=== PATIENT | female | born 1930 | race Caucasian/White ===

== ENCOUNTER 2016-11-24 15:39 | Emergency (ER) | payer MEDICARE ==
[~2016-11-24] VITALS: Ht 170.2 cm; Wt 64.5 kg
[~2016-11-24 15:39] MED LIST: LASI20TA PO; METO25 PO; NAME5TAB2 PO; OXYC10 PO; POTASSIUM PO; REME15TA PO; ZOLP5TAB3 PO
[2016-11-24 17:14] LABS: BACTERIA, URINE RARE /hpf; BLOOD, URINE NEG (NEG); COMMENT (UR) CULT NOT INDICATED; CULTURE IF INDICATED CULT NOT INDICATED; GLUCOSE,URINE NEG (NEG); HYALINE CAST, URINE 7 /lpf (RARE); KETONE, URINE NEG (NEG); NITRITE,URINE NEG (NEG); SQUAMOUS EPITHELIAL CELL URINE <1 /hpf (0-5); URINE COLOR YELLOW (YELLW/STRAW)
--- NOTE | 2016-11-24 17:14 | RADRPT ---
EXAM DATE/TIME: 11/24/2016 16:57 [facility] COMPARISON: CT BRAIN W/O CONTRAST, May 09, 2016, 10:15. INDICATIONS : Altered mental status. RADIATION DOSE: 36.75 CTDIvol (mGy) MEDICAL HISTORY : None SURGICAL HISTORY : None. ENCOUNTER: Initial ACUITY: 1 day PAIN SCALE: 0/10 LOCATION: Bilateral cranial TECHNIQUE: Multiple contiguous axial images were obtained of the head. Using automated exposure control and adj ustment of the mA and/or kV according to patient size, radiation dose was kept as low as reasonably a chievable to obtain optimal diagnostic quality images. FINDINGS: CEREBRUM: The ventricles are normal for age. No evidence of midline shift, mass lesion, hemorrhage or acute in farction. No extra-axial fluid collections are seen. POSTERIOR FOSSA: The cerebellum and brainstem are intact. The 4th ventricle is midline. The cerebellopontine angle i s unremarkable. EXTRACRANIAL: The visualized portion of the orbits is intact. SKULL: The calvaria is intact. No evidence of skull fracture. CONCLUSION: Unremarkable exam. Basil Crooks MD on November 24, 2016 at 17:08 Board Certified Radiologist. This report was verified electronically.
--- NOTE | 2016-11-24 17:22 | RADRPT ---
EXAM DATE/TIME: 11/24/2016 16:40 [facility] COMPARISON: No previous studies available for comparison. INDICATIONS : Palpitations. MEDICAL HISTORY : None. SURGICAL HISTORY : None. ENCOUNTER: Initial ACUITY: 1 day PAIN SCORE: 0/10 LOCATION: Bilateral chest FINDINGS: A single view of the chest demonstrates the lungs to be symmetrically aerated without evidence of mas s, infiltrate or effusion. The cardiomediastinal contours are unremarkable. Osseous structures are intact. There is asymmetry of the breast tissues. Atherosclerotic changes are present in the aorta. T here are multiple overlying electrocardiogram leads. CONCLUSION: No acute disease. Basil Crooks MD on November 24, 2016 at 17:19 Board Certified Radiologist. This report was verified electronically.
[2016-11-24 17:32] LABS: AUTOMATED NEUTROPHIL # 2.2 TH/MM3 (1.8-7.7); BASOPHIL % 0.7 % (0.0-2.0); EOSINOPHIL # 0.1 TH/MM3 (0-0.4); EOSINOPHIL % 2.1 % (0.0-4.0); HEMO FLAGS DIFF FINAL; LYMPH % 25.6 % (9.0-44.0); LYMPHOCYTE # 0.9 TH/MM3 (1.0-4.8); MEAN CELL VOLUME 101.8 FL (80.0-100.0); MEAN CORPUSCULAR HEMOGLOBIN 33.7 PG (27.0-34.0); MEAN CORPUSCULAR HGB CONC 33.1 % (32.0-36.0); MONO % 13.4 % (0.0-8.0); NEUT % 58.2 % (16.0-70.0); PLATELET COUNT 124 TH/MM3 (150-450); RED BLOOD COUNT 3.73 MIL/MM3 (4.00-5.30); WHITE BLOOD COUNT 3.7 TH/MM3 (4.0-11.0)
--- NOTE | 2016-11-24 17:41 | PD ---
HPI Chief Complaint: altered mental status Time Seen by Provider: 16:23 Travel History International Travel<30 days: No Contact w/Intl Traveler<30days: No History of Present Illness HPI 86-year-old female presents for evaluation of increase in altered mental status. Patient denies any complaints at this time. History is significantly limited from patient as there is report that she has dementia but records are limited. [facility] Past Medical History Medical History: Unable to Obtain Menopausal: Yes Past Surgical History Surgical History: Unable to Obtain Social History Alcohol Use: No Tobacco Use: No Substance Use: No Allergies-Medications (Allergen,Severity, Reaction): Coded Allergies: UNOBTAINABLE (Unverified , 05/09/16) power out at the facility, sent no paperwork except med list Reported Meds & Prescriptions Reported Meds & Active Scripts Active No Active Prescriptions or Reported Medications Review of Systems ROS Limitations: Poor Historian Except as stated in HPI: all other systems reviewed are Neg Physical Exam Exam Limitations: Poor Historian Narrative GENERAL: Well-nourished, well-developed patient. SKIN: Warm and dry. HEAD: Normocephalic and atraumatic. EYES: No injection or drainage. Pupils equal ENT: No nasal drainage noted. NECK: Supple, trachea midline. CARDIOVASCULAR: Regular rate and rhythm RESPIRATORY: No increased effort. No accessory muscle use. GASTROINTESTINAL: Abdomen soft, non-tender, nondistended. NEUROLOGICAL: Awake and alert to name, location, season, cannot give me month, day or year. Motor and sensory grossly within normal limits. Normal speech. Equal grasp bilaterally Data Data Last Documented VS Vital Signs Date Time Temp Pulse Resp B/P Pulse Ox O2 Delivery O2 Flow Rate FiO2 11/24/16 19:17 91 15 203/95 96 Room Air 11/24/16 18:01 98.0 Orders Magnesium (Mg) (11/24/16 16:23) Phosphorus (Po4) (11/24/16 16:23) Complete Blood Count With Diff (11/24/16 16:23) Comprehensive Metabolic Panel (11/24/16 16:23) Ckmb (Isoenzyme) Profile (11/24/16 16:23) Troponin I (11/24/16 16:23) Urinalysis - C+S If Indicated (11/24/16 16:23) Act Partial Throm Time (Ptt) (11/24/16 16:23) Prothrombin Time / Inr (Pt) (11/24/16 16:23) Ct Brain W/O Iv Contrast(Rout) (11/24/16 ) B-Type Natriuretic Peptide (11/24/16 16:23) Chest, Single Ap (11/24/16 ) Electrocardiogram (11/24/16 ) Iv Access Insert/Monitor (11/24/16 16:23) Ecg Monitoring (11/24/16 16:23) Oximetry (11/24/16 16:23) CKMB (11/24/16 18:20) CKMB% (11/24/16 18:20) Labs Laboratory Tests Test 11/24/16 11/24/16 11/24/16 16:40 17:00 18:20 Urine Color YELLOW Urine Turbidity CLEAR Urine pH 6.0 Urine Specific [place] 1.015 Urine Protein NEG mg/dL Urine Glucose (UA) NEG mg/dL Urine Ketones NEG mg/dL Urine Occult Blood NEG Urine Nitrite NEG Urine Bilirubin NEG Urine Urobilinogen LESS THAN 2.0 MG/DL Urine Leukocyte Esterase TRACE Urine RBC 2 /hpf Urine WBC LESS THAN 1 /hpf Urine Squamous Epithelial <1 /hpf Cells Urine Bacteria RARE /hpf Urine Hyaline Casts 7 /lpf Microscopic Urinalysis Comment CULT NOT INDICATED White Blood Count 3.7 TH/MM3 Red Blood Count 3.73 MIL/MM3 Hemoglobin 12.6 GM/DL Hematocrit 38.0 % Mean Corpuscular Volume 101.8 FL Mean Corpuscular Hemoglobin 33.7 PG Mean Corpuscular Hemoglobin 33.1 % Concent Red Cell Distribution Width 14.0 % Platelet Count 124 TH/MM3 Mean Platelet Volume 8.8 FL Neutrophils (%) (Auto) 58.2 % Lymphocytes (%) (Auto) 25.6 % Monocytes (%) (Auto) 13.4 % Eosinophils (%) (Auto) 2.1 % Basophils (%) (Auto) 0.7 % Neutrophils # (Auto) 2.2 TH/MM3 Lymphocytes # (Auto) 0.9 TH/MM3 Monocytes # (Auto) 0.5 TH/MM3 Eosinophils # (Auto) 0.1 TH/MM3 Basophils # (Auto) 0.0 TH/MM3 CBC Comment DIFF FINAL Differential Comment B-Type Natriuretic Peptide 71 PG/ML Prothrombin Time 11.5 SEC Prothromb Time International 1.0 RATIO Ratio Activated Partial 26.8 SEC Thromboplast Time Sodium Level 141 MEQ/L Potassium Level 3.4 MEQ/L Chloride Level 107 MEQ/L Carbon Dioxide Level 23.2 MEQ/L Anion Gap 11 MEQ/L Blood Urea Nitrogen 16 MG/DL Creatinine 0.67 MG/DL Estimat Glomerular Filtration 84 ML/MIN Rate Random Glucose 87 MG/DL Calcium Level 7.3 MG/DL Protein Corrected Calcium 8.1 MG/DL Phosphorus Level 2.4 MG/DL Magnesium Level 1.5 MG/DL Total Bilirubin 0.4 MG/DL Aspartate Amino Transf 31 U/L (AST/SGOT) Alanine Aminotransferase 18 U/L (ALT/SGPT) Alkaline Phosphatase 44 U/L Total Creatine Kinase 112 U/L Creatine Kinase MB 1.5 NG/ML Troponin I LESS THAN 0.02 NG/ML Total Protein 5.7 GM/DL Albumin 3.2 GM/DL MDM Medical Decision Making Medical Screen Exam Complete: Yes Emergency Medical Condition: Yes Medical Record Reviewed: Yes (past history confirmed) Interpretation(s) EKG shows NSR, no ST elevation or depression, and no arrhythmias. No significant T-wave inversions. PVCs CBC & BMP Diagram 11/24/16 17:00 CBC & BMP Diagram 11/24/16 17:00 11/24/16 18:20 Last [address] 11/24/16 0000 Signed Impressions: Service Date/Time: Thursday, November 24, 2016 16:57 - CONCLUSION: Unremarkable exam. Basil Crooks MD Chest X-Ray 11/24/16 0000 Signed Impressions: Service Date/Time: Thursday, November 24, 2016 16:40 - CONCLUSION: No acute disease. Basil Crooks MD no acute Differential Diagnosis Electrolyte abnormality, intracranial, UTI... Narrative Course Will check blood work, EKG, imaging and reevaluate. Patient had brief episode of bigeminy that was asymptomatic on arrival. ed workup no acute except ck and troponin, if normal will dc, Patient denies any new complaints and patient appears at dementia baseline, stable for outpatient workup, attempted to reach daughter without answer to help coordinate outpatient care Physician Communication Physician Communication dr mcgowan to follow labs and if normal dc Diagnosis Primary Impression: Altered mental status Qualified Code: R41.82 - Altered mental status, unspecified altered mental status type Patient Instructions: General Instructions Additional Instructions: follow with primary tommorrow, return as needed Med/Other Pt SpecificInfo: No Change to Meds Scripts No Active Prescriptions or Reported Meds Disposition: 01 DISCHARGE HOME Condition: Stable Roxie Aguila MD Nov 24, 2016 17:41
[2016-11-24 17:57] VITALS: BP 180/99; PULSE 78; RESP 14; TEMP 97.9; O2SAT 97
[2016-11-24 18:01] VITALS: BP 180/99; PULSE 78; RESP 14; TEMP 98; O2SAT 98
[2016-11-24 19:03] LABS: ALT (GPT) 18 U/L (10-53); ANION GAP 11 MEQ/L (5-15); AST (GOT) 31 U/L (15-37); BICARBONATE 23.2 MEQ/L (21.0-32.0); BLOOD UREA NITROGEN 16 MG/DL (7-18); CHLORIDE 107 MEQ/L (98-107); GLOMERULAR FILTRATION RATE 84 ML/MIN (>89); MAGNESIUM 1.5 MG/DL (1.5-2.5); POTASSIUM 3.4 MEQ/L (3.5-5.1); SODIUM (NA) 141 MEQ/L (136-145)
[2016-11-24 19:04] LABS: APTT (PATIENT) 26.8 SEC (24.3-30.1); PROTHROMBIN TIME - PATIENT 11.5 SEC (9.8-11.6)
[2016-11-24 19:17] VITALS: BP 203/95; PULSE 91; RESP 15; O2SAT 96
[2016-11-24 19:23] LABS: ALKALINE PHOSPHATASE 44 U/L (45-117); CALCIUM-PROTEIN CORRECTED 8.1 MG/DL (8.5-10.1); CREATINE KINASE 112 U/L (26-192); TOTAL BILIRUBIN ADULT 0.4 MG/DL (0.2-1.0)
[2016-11-24 20:50] LABS: CKMB 1.5 NG/ML (0.5-3.6)
--- NOTE | 2016-11-25 10:38 | EKG ---
Date Performed: 11/24/2016 Time Performed: 16:26:26 PTAGE: 86 years EKG: Sinus rhythm WITH OCCASIONAL VENTRICULAR PREMATURE COMPLEXES WITH OCCASIONAL SUPRAVENTRICULAR PREMATURE COMPLEXES MARKED LEFT AXIS DEVIATION RIGHT BUNDLE BRANCH BLOCK MODERATE VOLTAGE CRITERIA FOR LVH, CONSIDER NOR MAL VARIANT ABNORMAL ECG INTERPRETATION BASED ON A DEFAULT AGE OF 40 YEARS NO PREVIOUS TRACING DOCTOR: Fifi Cadena Interpretating Date/Time 11/25/2016 10:36:45
== END 2016-11-25 00:35 | disposition home or self-care (01) ==
LOC: NEPC 15:39
DX: F03.90 Unspecified dementia, unspecified severity, without behavioral disturbance, psychotic disturbance, mood disturbance, and anxiety (principal); R94.31 Abnormal electrocardiogram [ECG] [EKG]; R00.2 Palpitations; I45.10 Unspecified right bundle-branch block
CPT/HCPCS: 70450; 71010; 80053; 81001; 82550; 82552; 83735; 83880; 84100; 84484; 85025; 85610; 85730; 93005

== ENCOUNTER 2018-07-30 20:38 | Observation (INO) ==
--- NOTE | 2018-07-30 22:03 | XR ---
EXAM DATE: 07/30/2018 9:58 PM EST AGE/SEX: 87 years / Female INDICATIONS: Patient was found on the floor presuming a fall, left flank pain. CLINICAL DATA: This is the patient's initial encounter. Patient reports that signs and symptoms have been present for 1 day and indicates a pain score of 8/10. MEDICAL/SURGICAL HISTORY: None. . Left hip arthroplasty. COMPARISON: No prior exams available for comparison. FINDINGS: Postoperative left hip replacement. Soft tissue swelling lateral thigh. Moderate osteoarthritis of ri ght hip. No acute fracture identified. CONCLUSION: No acute fracture. Left hip replacement. Soft tissue swelling upper lateral left thigh. Electronically signed by: Troy Akhtar MD Board Certified Radiologist 07/30/2018 10:02 PM EST
--- NOTE | 2018-07-30 22:13 | CT ---
EXAM DATE: 07/30/2018 10:09 PM EST AGE/SEX: 87 years / Female INDICATIONS: Trauma; fall. CLINICAL DATA: This is the patient's initial encounter. Patient reports that signs and symptoms have been present for 1 day and indicates a pain score of Nonresponsive. MEDICAL/SURGICAL HISTORY: Dementia. Hypertension. Mastectomy, bilateral. RADIATION DOSE: 32.74 CTDI (mGy) COMPARISON: [facility] [place], CT BRAIN W/O CONTRAST, 11/24/2016. . TECHNIQUE: CT of the head without contrast. Using automated exposure control and adjustment of the mA and/or kV according to patient size, radiation dose was kept as low as reasonably achievable to ob tain optimal diagnostic quality images. DICOM format image data is available electronically for revi ew and comparison. FINDINGS: Cerebrum: The ventricles are normal for age. No evidence of midline shift, mass lesion, hemorrhage or acute infarction. No extraaxial fluid collections are seen. Posterior Fossa: The cerebellum and brainstem are intact. The 4th ventricle is midline. The cerebe llopontine angle is unremarkable. Extracranial: The visualized portion of the orbits is intact. Skull: The calvaria is intact. No evidence of skull fracture. CONCLUSION: 1. No acute intracranial abnormalities. Cortical volume loss noted. . Electronically signed by: Troy Akhtar MD Board Certified Radiologist 07/30/2018 10:12 PM EST
--- NOTE | 2018-07-30 22:25 | CT ---
EXAM DATE: 07/30/2018 10:12 PM EST AGE/SEX: 87 years / Female INDICATIONS: Trauma; fall. CLINICAL DATA: This is the patient's initial encounter. Patient reports that signs and symptoms have been present for 1 day and indicates a pain score of Nonresponsive. MEDICAL/SURGICAL HISTORY: Dementia. Hypertension. Mastectomy, bilateral. RADIATION DOSE: 16.56 CTDI (mGy) COMPARISON: No prior exams available for comparison. TECHNIQUE: Contiguous axial images were obtained using helical multirow detector technique. The vol umetric data was post-processed with multiplanar reconstruction in oblique axial, sagittal, and coron al planes. Using automated exposure control and adjustment of the mA and/or kV according to patient s ize, radiation dose was kept as low as reasonably achievable to obtain optimal diagnostic quality emilia ges. DICOM format image data is available electronically for review and comparison. FINDINGS: There is no acute fracture. There is mild degenerative anterolisthesis of C3 on C4 on C5 and C7 on T1 . There is moderate degenerative disc disease and multilevel foraminal encroachment. No prevertebral so ft tissue swelling. No significant bony canal stenosis. CONCLUSION: 1. No acute fracture. Mild degenerative anterolisthesis at C3-4-5 and C7-T1-T2. Electronically signed by: Troy Akhtar MD Board Certified Radiologist 07/30/2018 10:24 PM EST
[2018-07-30 22:47] LABS: Bilirubin,Urine Negative (Negative); Clarity,Urine Clear (Clear); Color,Urine Straw (Yellw/Straw); Glucose,Urine (UA) Negative (Negative); Leukocyte Esterase,Urine Small (Negative); Nitrite,Urine Negative (Negative); Specific Gravity,Urine 1.008 (1.002-1.035); Squamous Epithelial Cell,Urine 1 /hpf (0-5)
[2018-07-30 22:57] LABS: Baso % (Auto) 0.6 % (0.0-2.0); Eos # (Auto) 0.1 th/mm3 (0.0-0.4); Eos % (Auto) 2.3 % (0.0-4.0); Hematocrit 36.1 % (35.0-46.0); Hemoglobin 12.2 gm/dL (11.6-15.3); Lymph # (Auto) 1.1 th/mm3 (1.0-4.8); Lymph % (Auto) 20.8 % (9.0-44.0); Mean Corpuscular HGB Conc 33.9 % (32.0-36.0); Mean Corpuscular Volume 100.2 fL (80.0-100.0); Mean Platelet Volume 7.7 fL (7.0-11.0); Mono # (Auto) 0.7 th/mm3 (0.0-0.9); Mono % (Auto) 12.5 % (0.0-8.0); Neut # (Auto) 3.4 th/mm3 (1.8-7.7); Neut % (Auto) 63.8 % (16.0-70.0); Platelet Count 112 th/mm3 (150-450); Red Cell Distribution Width 14.1 % (11.6-17.2); White Blood Count 5.3 th/mm3 (4.0-11.0)
[2018-07-30 23:02] LABS: Alanine Aminotransferase 14 U/L (10-53); Albumin 3.8 g/dL (3.4-5.0); Anion Gap 9 meq/L (5-15); Aspartate Aminotransferase 19 U/L (15-37); Blood Urea Nitrogen 17 mg/dL (7-18); Calcium 8.9 mg/dL (8.5-10.1); Carbon Dioxide 34.4 meq/L (21.0-32.0); Chloride 101 meq/L (98-107); Glomerular Filtration Rate 54 mL/min (>89); Glucose,Random 100 mg/dL (74-106); Potassium 3.3 meq/L (3.5-5.1); Sodium 144 meq/L (136-145)
[2018-07-30 23:04] LABS: Activated Partial Thrombo Time 26.3 sec (23.4-31.7); Alkaline Phosphatase 59 U/L (45-117); INR 1.1 Ratio; Prothrombin Time 11.3 sec (9.8-11.6)
[2018-07-31] MEDS ORDERED: LORazepam 1 MG Tablet PO ONE (02:38)
[2018-07-31] MEDS ORDERED: Bisacodyl 10 MG Supp RECTAL PRN (03:05)
[2018-07-31] MEDS ORDERED: Acetaminophen 325 MG Tablet PO PRN (03:05)
[2018-07-31] MEDS: Sod Chloride 0.9% Inj 1,000 ML IV.CONT SCH ×2 (03:18→13:50)
--- NOTE | 2018-07-31 03:57 | P.HPIM ---
History of Present Illness Primary Care Physician: No Primary Care Physician History of Present Illness: This is an 87-year-old female with a PMH of HTN and Dementia who was brought to the ER by EMS for c/o left hip pain after a fall. Found on ground by daughter, unclear if pt had LOC. Pt poor historian due to underlying dementia. On arrival, BP 136/74, HR 80, O2 sat 97% on RA, Afebrile. CBC unremarkable. Chemistry essentially unremarkable. CT C-Spine w/ no acute fracture. CT Head negative. Hip X-ray negative for fracture. Pt was to be d/c'd from the ER, however had syncopal episode upon standing. Denies complaints at this time. Diagnosis (1) Fall: (2) Syncope: (3) Dementia: Review of Systems PAST FAMILY HISTORY: Reviewed. No h/o DM or CAD Review of Systems: all other systems reviewed are negative [facility] Medical History Medical History Dementia (Acute) Hypertension (Acute) Surgical History Surgical History H/O mastectomy (Acute) Stented coronary artery (Acute) Social History Social History Substance History: No History of Abuse Second Hand Smoke Exposure: No Smoking Status: Former smoker How Often Do You Have a Drink Containing Alcohol: Never Recent Travel in [facility] within the Last 8 Weeks: No Recent Out of Country Travel within the Last 8 Weeks: No Immunization History Tetanus Immunization: Unsure Medications and Allergies Allergies Allergy/AdvReac Type Severity Reaction Status Date / Time Penicillins Allergy Hives Verified 07/30/18 20:50 Home Medications Medication Instructions Recorded Confirmed Type Unable to Obtain Home Meds 07/30/18 07/30/18 History Active Medications: Active Medications Acetaminophen (Tylenol) 650 mg PO Q4H PRN PRN Reason: Temp > 100.4 Al Hydroxide/Mg Hydroxide (Milk Of Magnesia Liq) 30 ml PO Q12H PRN PRN Reason: Mild Constipation Bisacodyl (Dulcolax Supp) 10 mg RECTAL DAILY PRN PRN Reason: SEVERE CONSITIPATION Sodium Chloride (Ns Inj) 1,000 mls @ 100 mls/hr IV.CONT .Q10H [facility] Last Admin: 07/31/18 03:18 Dose: 100 mls/hr Lactulose (Lactulose Liq) 30 ml PO DAILY PRN PRN Reason: SEVERE CONSITIPATION Ondansetron HCl (Zofran Inj) 4 mg IV.PUSH Q6H PRN PRN Reason: NAUSEA OR VOMITING Senna/Docusate Sodium (Julita-Colace) 1 tab PO BID AYANNA Sennosides (Senokot) 17.2 mg PO Q12H PRN PRN Reason: Moderate Constipation Sodium Chloride (Ns Flush) 2 ml IV.FLUSH BID AYANNA Sodium Chloride (Ns Flush) 2 ml IV.FLUSH PRN PRN PRN Reason: FLUSH AFTER USING IV ACCESS Physical Exam Vital signs: Last Vital Signs Temp 98.3 F 07/30/18 20:50 Pulse 58 L 07/31/18 01:00 Resp 16 07/31/18 01:00 BP 163/57 H 07/31/18 01:00 Pulse Ox 96 07/31/18 01:00 Intake & Output 07/28/18 07/29/18 07/30/18 07/31/18 06:59 06:59 06:59 06:59 Weight 58.967 kg Narrative: PE: GENERAL: Pleasant elderly white female in no acute distress. SKIN: Focused skin assessment warm and dry. HEENT: PERRLA, EOMI. No scleral icterus or conjunctival pallor. No lid lag or facial droop. CARDIOVASCULAR: Regular rate and rhythm. No obvious murmurs to auscultation. No chest tenderness to palpation. RESPIRATORY: No obvious rhonchi or wheezing. Clear to auscultation. Breath sounds equal bilaterally. GASTROINTESTINAL: Abdomen soft, non-tender, nondistended. BS normal. MUSCULOSKELETAL: Extremities without clubbing, cyanosis, or edema. No obvious deformities. Some pain w/ movement LLE NEUROLOGICAL: Awake, alert and oriented x4. No focal neurologic deficits. Moving both upper and lower extremities spontaneously. PSYCHIATRIC: Appropriate mood and affect. Insight and judgment normal. Results Labs CBC & Chem 7: 07/30/18 22:26 07/30/18 22:26 Imaging Impressions Cervical Spine CT 07/30/18 21:27 CONCLUSION: 1. No acute fracture. Mild degenerative anterolisthesis at C3-4-5 and C7-T1-T2. Head CT 07/30/18 21:27 CONCLUSION: 1. No acute intracranial abnormalities. Cortical volume loss noted. . Hip X-Ray 07/30/18 21:27 CONCLUSION: No acute fracture. Left hip replacement. Soft tissue swelling upper lateral left thigh. Caprini VTE Risk Assessment Caprini VTE Risk Assessment: No/Low Risk (score <= 1) Caprini Risk Assessment Model: Point Value = 1 Point Value = 2 Point Value = 3 Point Value = 5 Age 41-60 Minor surgery BMI > 25 kg/m2 Swollen legs Varicose veins or History of unexplained or recurrent spontaneous Oral contraceptives or hormone replacement Sepsis (< 1 month) Serious lung disease, including pneumonia (< 1 month) Abnormal pulmonary function Acute myocardial infarction Congestive heart failure (< 1 month) History of inflammatory bowel disease Medical patient at bed rest Age 61-74 Arthroscopic surgery Major open surgery (> 45 min) Laparoscopic surgery (> 45 min) Malignancy Confined to bed (> 72 hours) Immobilizing plaster cast Central venous access Age >= 75 History of VTE Family history of VTE Factor V Leiden Prothrombin [id number] Lupus anticoagulant Anticardiolipin antibodies Elevated serum homocysteine Heparin-induced thrombocytopenia Other congenital or acquired thrombophilia Stroke (< 1 month) Elective arthroplasty Hip, pelvis, or leg fracture Acute spinal cord injury (< 1 month) Prophylaxis Regimen: Total Risk Factor Score Risk Level Prophylaxis Regimen 0-1 Low Early ambulation 2 Moderate Order ONE of the following: *Sequential Compression Device (SCD) *Heparin 5000 units SQ BID 3-4 Higher Order ONE of the following medications: *Heparin 5000 units SQ TID *Enoxaparin/Lovenox 40 mg SQ daily (WT < 150 kg, CrCl > 30 mL/min) *Enoxaparin/Lovenox 30 mg SQ daily (WT < 150 kg, CrCl > 10-29 mL/min) *Enoxaparin/Lovenox 30 mg SQ BID (WT < 150 kg, CrCl > 30 mL/min) AND/OR *Sequential Compression Device (SCD) 5 or more Highest Order ONE of the following medications: *Heparin 5000 units SQ TID (Preferred with Epidurals) *Enoxaparin/Lovenox 40 mg SQ daily (WT < 150 kg, CrCl > 30 mL/min) *Enoxaparin/Lovenox 30 mg SQ daily (WT < 150 kg, CrCl > 10-29 mL/min) *Enoxaparin/Lovenox 30 mg SQ BID (WT < 150 kg, CrCl > 30 mL/min) AND *Sequential Compression Device (SCD) Assessment and Plan (1) Fall: Code(s): W19.XXXA - Unspecified fall, initial encounter Status: Acute (2) Syncope: Code(s): R55 - Syncope and collapse Status: Acute (3) Dementia: Code(s): F03.90 - Unspecified dementia without behavioral disturbance Status: Acute Plan A/P: 1. Fall: s/p unwitnessed fall w/ c/o left hip pain, CT Head/C-Spine w/ no acute findings. Hip X-ray negative for fracture. 2. Syncope: likely vasovagal, syncopal event upon standing while in ER, admit for observation, telemetry, check serial cardiac enzymes, check Echo to eval for valvular abnormality/cardiomyopathy. PT for eval/tx. 3. Dementia: At baseline, resume home meds once available. 4. DVT Prophylaxis: SCD/Teds 5. Social work for d/c planning as needed 6. Case discussed w/ ER physician at length, labs/records/imaging reviewed by me.
--- NOTE | 2018-07-31 04:08 | ED ---
HPI General Chief Complaint: Fall Stated Complaint: fall/hip pain Time Seen by Provider: 07/30/18 21:16 History of Present Illness HPI Narrative: Patient is an 87-year-old female presents the emergency department with chief complaint of fall. Per daughter it was unwitnessed however she found her on the ground. Unclear if this was syncope or trip and fall. Patient is complaining of leg pain on the left. She is somewhat demented and does not provide any history. Daughter states she walks with a walker at home regularly. She does not take any blood thinners. Unclear if there was a head strike or not because the fall was unwitnessed. Related Data Home Medications Medication Instructions Recorded Confirmed Unable to Obtain Home Meds 07/30/18 07/30/18 Allergies Allergy/AdvReac Type Severity Reaction Status Date / Time Penicillins Allergy Hives Verified 07/30/18 20:50 Review of Systems ROS: all other systems reviewed are negative FOR[facility]LY [facility] Medical History Medical History Dementia (Acute) Hypertension (Acute) Surgical History Surgical History H/O mastectomy (Acute) Stented coronary artery (Acute) Social History Social History Substance History: No History of Abuse Second Hand Smoke Exposure: No Smoking Status: Former smoker How Often Do You Have a Drink Containing Alcohol: Never Recent Travel in [facility] within the Last 8 Weeks: No Recent Out of Country Travel within the Last 8 Weeks: No Immunization History Tetanus Immunization: Unsure Exam Narrative Exam Narrative: GENERAL: 87-year-old female in no distress SKIN: Focused skin assessment warm/dry. HEAD: Atraumatic. Normocephalic. EYES: Pupils equal and round. No scleral icterus. No injection or drainage. ENT: No nasal bleeding or discharge. Mucous membranes pink and moist. NECK: Trachea midline. No JVD. CARDIOVASCULAR: Regular rate and rhythm. No murmur appreciated. RESPIRATORY: No accessory muscle use. Clear to auscultation. Breath sounds equal bilaterally. GASTROINTESTINAL: Abdomen soft, non-tender, nondistended. Hepatic and splenic margins not palpable. MUSCULOSKELETAL: Large hematoma to the left lateral thigh near the greater trochanter. No pain in the actual hip joint when palpating the inguinal region. NEUROLOGICAL: Awake and alert. No obvious cranial nerve deficits. Motor grossly within normal limits. Normal speech. Course Initial Documented Vital Signs Temperature 98.3 F 07/30/18 20:50 Pulse Rate 80 07/30/18 20:50 Respiratory Rate 20 12/29/18 20:50 Blood Pressure 136/74 07/30/18 20:50 Pulse Oximetry 97 07/30/18 20:50 Last Documented Vital Signs Temperature 98.3 F 07/30/18 20:50 Pulse Rate 58 L 07/31/18 01:00 Respiratory Rate 16 07/31/18 01:00 Blood Pressure 163/57 H 07/31/18 01:00 Pulse Oximetry 96 07/31/18 01:00 Medical Decision Making MDM Narrative Medical decision making narrative: discharge she had a syncopal episode while in the emergency department.Patient was seen and evaluated in the emergency department. Her urine was unremarkable. Her labs were unremarkable. Her CT scans were unremarkable. Her radiograph was negative and she did not have a hip fracture. She was subsequently discharged but upon she was then reevaluated and could not stand for orthostatic vital signs. She was subsequently admitted to the hospitalist service for syncope and reevaluation Medical Screen Exam Complete: Yes Emergency Medical Condition: Yes Lab Data Result diagrams: 07/30/18 22:26 07/30/18 22:26 Lab Results 07/30/18 07/30/18 07/30/18 Range/Units 22:24 22:26 22:26 WBC 5.3 (4.0-11.0) th/mm3 RBC 3.60 L (4.00-5.30) mil/mm3 Hgb 12.2 (11.6-15.3) gm/dL Hct 36.1 (35.0-46.0) % MCV 100.2 H (80.0-100.0) fL MCH 34.0 (27.0-34.0) pg MCHC 33.9 (32.0-36.0) % RDW 14.1 (11.6-17.2) % Plt Count 112 L (150-450) th/mm3 MPV 7.7 (7.0-11.0) fL Neut % (Auto) 63.8 (16.0-70.0) % Lymph % (Auto) 20.8 (9.0-44.0) % [place] % (Auto) 12.5 H (0.0-8.0) % Eos % (Auto) 2.3 (0.0-4.0) % Baso % (Auto) 0.6 (0.0-2.0) % Neut # (Auto) 3.4 (1.8-7.7) th/mm3 Lymph # (Auto) 1.1 (1.0-4.8) th/mm3 [place] # (Auto) 0.7 (0.0-0.9) th/mm3 Eos # (Auto) 0.1 (0.0-0.4) th/mm3 Baso # (Auto) 0.0 (0.0-0.2) th/mm3 WBC Differential . Differential Comment Auto diff final PT 11.3 (9.8-11.6) sec INR 1.1 Ratio APTT 26.3 (23.4-31.7) sec Sodium (136-145) meq/L Potassium (3.5-5.1) meq/L Chloride (98-107) meq/L Carbon Dioxide (21.0-32.0) meq/L Anion Gap (5-15) meq/L BUN (7-18) mg/dL Creatinine (0.50-1.00) mg/dL Estimated GFR (>89) mL/min Random Glucose (74-106) mg/dL Calcium (8.5-10.1) mg/dL Total Bilirubin (0.2-1.0) mg/dL AST (15-37) U/L ALT (10-53) U/L Alkaline Phosphatase (45-117) U/L Total Protein (6.4-8.2) g/dL Albumin (3.4-5.0) g/dL Urine Color Straw (Yellw/Straw) Urine Clarity Clear (Clear) Urine pH 6.0 (5.0-8.5) Ur Specific [place] 1.008 (1.002-1.035) Urine Protein Negative (Neg-Trace) mg/dL Urine Glucose (UA) Negative (Negative) mg/dL Urine Ketones Negative (Negative) mg/dL Urine Occult Blood Small H (Negative) Urine Nitrate Negative (Negative) Urine Bilirubin Negative (Negative) Urine Urobilinogen Less than 2 (Less than 2) mg/dL Ur Leukocyte Esterase Small H (Negative) Urine RBC 3 (0-3) /hpf Urine WBC 13 H (0-5) /hpf Ur Squamous Epith Cells 1 (0-5) /hpf Micro UA Comment Cath-culture ind Ur Microscopic Review Not Reportable 12/29/18 Range/Units 22:26 WBC (4.0-11.0) th/mm3 RBC (4.00-5.30) mil/mm3 Hgb (11.6-15.3) gm/dL Hct (35.0-46.0) % MCV (80.0-100.0) fL MCH (27.0-34.0) pg MCHC (32.0-36.0) % RDW (11.6-17.2) % Plt Count (150-450) th/mm3 MPV (7.0-11.0) fL Neut % (Auto) (16.0-70.0) % Lymph % (Auto) (9.0-44.0) % [place] % (Auto) (0.0-8.0) % Eos % (Auto) (0.0-4.0) % Baso % (Auto) (0.0-2.0) % Neut # (Auto) (1.8-7.7) th/mm3 Lymph # (Auto) (1.0-4.8) th/mm3 [place] # (Auto) (0.0-0.9) th/mm3 Eos # (Auto) (0.0-0.4) th/mm3 Baso # (Auto) (0.0-0.2) th/mm3 WBC Differential Differential Comment PT (9.8-11.6) sec INR Ratio APTT (23.4-31.7) sec Sodium 144 (136-145) meq/L Potassium 3.3 L (3.5-5.1) meq/L Chloride 101 (98-107) meq/L Carbon Dioxide 34.4 H (21.0-32.0) meq/L Anion Gap 9 (5-15) meq/L BUN 17 (7-18) mg/dL Creatinine 0.97 (0.50-1.00) mg/dL Estimated GFR 54 L (>89) mL/min Random Glucose 100 (74-106) mg/dL Calcium 8.9 (8.5-10.1) mg/dL Total Bilirubin 0.7 (0.2-1.0) mg/dL AST 19 (15-37) U/L ALT 14 (10-53) U/L Alkaline Phosphatase 59 (45-117) U/L Total Protein 7.0 (6.4-8.2) g/dL Albumin 3.8 (3.4-5.0) g/dL Urine Color (Yellw/Straw) Urine Clarity (Clear) Urine pH (5.0-8.5) Ur Specific [place] (1.002-1.035) Urine Protein (Neg-Trace) mg/dL Urine Glucose (UA) (Negative) mg/dL Urine Ketones (Negative) mg/dL Urine Occult Blood (Negative) Urine Nitrate (Negative) Urine Bilirubin (Negative) Urine Urobilinogen (Less than 2) mg/dL Ur Leukocyte Esterase (Negative) Urine RBC (0-3) /hpf Urine WBC (0-5) /hpf Ur Squamous Epith Cells (0-5) /hpf Micro UA Comment Ur Microscopic Review Imaging Data Radiologist's impression: Cervical Spine CT 07/30/18 21:27 CONCLUSION: 1. No acute fracture. Mild degenerative anterolisthesis at C3-4-5 and C7-T1-T2. Head CT 07/30/18 21:27 CONCLUSION: 1. No acute intracranial abnormalities. Cortical volume loss noted. . Hip X-Ray 07/30/18 21:27 CONCLUSION: No acute fracture. Left hip replacement. Soft tissue swelling upper lateral left thigh. Discharge Plan Discharge Order Discharge Orders: ED Use Only Admit Order (Routine); Ordered 07/31/18 Ordered By: Humberto Coleman Physicians Team ED Provider: Humberto Coleman Primary Care Provider: Primary Care Diane Delvalle Rxs /Orders / Referrals /Forms Prescriptions: No Action Unable to Obtain Home Meds RF: 0 Discharge Interventions Interventions: Vital Signs Last Done: 07/31/18 01:00 Status ED Status: With Doctor
[2018-07-31] MEDS ORDERED: Senna/Docusate Sodium 8.6/50 MG Tablet PO SCH (09:00)
[2018-07-31] MEDS ORDERED: Potassium Bicarbonate 25 MEQ Effervescent Tablet PO ONE (14:07)
--- NOTE | 2018-07-31 14:08 | P.PNIM ---
Subjective Interval history: Patient is resting quietly in bed. Wakes easily. Smiles and nods yes to my questions but is clearly confused. Does not appear to be in any distress. Nursing reports no adverse events overnight. Patient's daughter arrives later in afternoon at bedside. Explained that we were waiting for an echocardiogram to evaluate a possible cause of patient's syncopal event. Daughter does not feel that they would pursue any intervention and asked that we canceled the echocardiogram. Physical Exam Vital signs: Last Vital Signs Temp 97.2 F L 07/31/18 12:00 Pulse 68 07/31/18 12:00 Resp 16 07/31/18 12:00 BP 114/58 L 07/31/18 12:00 Pulse Ox 93 L 07/31/18 12:00 Intake & Output 07/29/18 07/30/18 07/31/18 08/01/18 06:59 06:59 06:59 06:59 Intake Total 1000 / 1000 Output Total 0 / 0 Balance 0 / 0 1000 / 1000 Weight 58.967 kg Narrative: GENERAL: Pleasant elderly white female in no acute distress. SKIN: Focused skin assessment warm and dry. CARDIOVASCULAR: Regular rate and rhythm. RESPIRATORY: No obvious rhonchi or wheezing. Clear to auscultation. Breath sounds equal bilaterally. GASTROINTESTINAL: Abdomen soft, non-tender, nondistended. BS normal. MUSCULOSKELETAL: Extremities without clubbing, cyanosis, or edema. No obvious deformities. Some pain w/ movement LLE NEUROLOGICAL: Drowsy but easily awakened. Oriented to self. No focal neurologic deficits. Moving both upper and lower extremities spontaneously. PSYCHIATRIC: Poor historian; dementia Results Labs CBC & Chem 7: 07/30/18 22:26 07/30/18 22:26 Imaging Imaging: Impressions Cervical Spine CT 07/30/18 21:27 CONCLUSION: 1. No acute fracture. Mild degenerative anterolisthesis at C3-4-5 and C7-T1-T2. Head CT 07/30/18 21:27 CONCLUSION: 1. No acute intracranial abnormalities. Cortical volume loss noted. . Hip X-Ray 07/30/18 21:27 CONCLUSION: No acute fracture. Left hip replacement. Soft tissue swelling upper lateral left thigh. Assessment and Plan (1) Fall: Code(s): W19.XXXA - Unspecified fall, initial encounter Status: Acute (2) Syncope: Code(s): R55 - Syncope and collapse Status: Acute (3) Dementia: Code(s): F03.90 - Unspecified dementia without behavioral disturbance Status: Acute Plan Patient is an 87-year-old female with a past medical history of hypertension and dementia who was brought to the ER after a fall and complaint of left hip pain. Patient is a very poor historian due to underlying dementia. She was noted to have a syncopal episode while in the ED and was admitted to observation. Status post fall with hip pain -No acute fracture -Supportive care Syncopal episode -Likely vasovagal -Telemetry and serial cardiac enzymes negative. Echo ordered but daughter declined. DVT prophylaxis: SCD/teds Discharge planning: Return to current assisted living.
--- NOTE | 2018-07-31 14:39 | P.DS ---
DS: Providers Date of admission: 07/31/18 04:05 Primary care physician: No Primary Care Physician Brief History from admission: This is an 87-year-old female with a PMH of HTN and Dementia who was brought to the ER by EMS for c/o left hip pain after a fall. Found on ground by daughter, unclear if pt had LOC. Pt poor historian due to underlying dementia. On arrival, BP 136/74, HR 80, O2 sat 97% on RA, Afebrile. CBC unremarkable. Chemistry essentially unremarkable. CT C-Spine w / no acute fracture. CT Head negative. Hip X-ray negative for fracture. Pt was to be d/c'd from the ER, however had syncopal episode upon standing. Denies complaints at this time. DS: Diagnosis Discharge Diagnosis (1) Fall: Status: Acute (2) Syncope: Status: Acute (3) Dementia: Status: Acute DS: Summary Patient is an 87-year-old female with a past medical history of hypertension and dementia who was brought to the ER after a fall and complaint of left hip pain. Patient is a very poor historian due to underlying dementia. She was noted to have a syncopal episode while in the ED and was admitted to observation. Status post fall with hip pain -improved -No acute fracture -Supportive care Syncopal episode -resolved; family declined further workup. -Likely vasovagal -Telemetry and serial cardiac enzymes negative. Echo ordered but daughter declined. Time Spent with Patient Total time spent providing and/or coordinating discharge services: <30 min Exam Narrative Exam Narrative: GENERAL: Pleasant elderly white female in no acute distress. SKIN: Focused skin assessment warm and dry. CARDIOVASCULAR: Regular rate and rhythm. RESPIRATORY: No obvious rhonchi or wheezing. Clear to auscultation. Breath sounds equal bilaterally. GASTROINTESTINAL: Abdomen soft, non-tender, nondistended. BS normal. MUSCULOSKELETAL: Extremities without clubbing, cyanosis, or edema. No obvious deformities. Some pain w/ movement LLE NEUROLOGICAL: Drowsy but easily awakened. Oriented to self. No focal neurologic deficits. Moving both upper and lower extremities spontaneously. PSYCHIATRIC: Poor historian; dementia Results Labs on day of discharge: Labs from last 24 hours 07/31/18 07/30/18 07/30/18 11:14 22:26 22:26 WBC RBC Hgb Hct MCV MCH MCHC RDW Plt Count MPV Neut % (Auto) Lymph % (Auto) [place] % (Auto) Eos % (Auto) Baso % (Auto) Neut # (Auto) Lymph # (Auto) [place] # (Auto) Eos # (Auto) Baso # (Auto) WBC Differential Differential Comment PT 11.3 INR 1.1 APTT 26.3 Sodium 144 Potassium 3.3 L Chloride 101 Carbon Dioxide 34.4 H Anion Gap 9 BUN 17 Creatinine 0.97 Estimated GFR 54 L Random Glucose 100 Calcium 8.9 Total Bilirubin 0.7 AST 19 ALT 14 Alkaline Phosphatase 59 Troponin I Less than 0.02 L Total Protein 7.0 Albumin 3.8 Urine Color Urine Clarity Urine pH Ur Specific [place] Urine Protein Urine Glucose (UA) Urine Ketones Urine Occult Blood Urine Nitrate Urine Bilirubin Urine Urobilinogen Ur Leukocyte Esterase Urine RBC Urine WBC Ur Squamous Epith Cells Micro UA Comment Ur Microscopic Review 07/30/18 07/30/18 22:26 22:24 WBC 5.3 RBC 3.60 L Hgb 12.2 Hct 36.1 MCV 100.2 H MCH 34.0 MCHC 33.9 RDW 14.1 Plt Count 112 L MPV 7.7 Neut % (Auto) 63.8 Lymph % (Auto) 20.8 [place] % (Auto) 12.5 H Eos % (Auto) 2.3 Baso % (Auto) 0.6 Neut # (Auto) 3.4 Lymph # (Auto) 1.1 [place] # (Auto) 0.7 Eos # (Auto) 0.1 Baso # (Auto) 0.0 WBC Differential . Differential Comment Auto diff final PT INR APTT Sodium Potassium Chloride Carbon Dioxide Anion Gap BUN Creatinine Estimated GFR Random Glucose Calcium Total Bilirubin AST ALT Alkaline Phosphatase Troponin I Total Protein Albumin Urine Color Straw Urine Clarity Clear Urine pH 6.0 Ur Specific [place] 1.008 Urine Protein Negative Urine Glucose (UA) Negative Urine Ketones Negative Urine Occult Blood Small H Urine Nitrate Negative Urine Bilirubin Negative Urine Urobilinogen Less than 2 Ur Leukocyte Esterase Small H Urine RBC 3 Urine WBC 13 H Ur Squamous Epith Cells 1 Micro UA Comment Cath-culture ind Ur Microscopic Review Not Reportable Impressions ITS Impressions Cervical Spine CT 07/30/18 21:27 CONCLUSION: 1. No acute fracture. Mild degenerative anterolisthesis at C3-4-5 and C7-T1-T2. Head CT 07/30/18 21:27 CONCLUSION: 1. No acute intracranial abnormalities. Cortical volume loss noted. . Hip X-Ray 07/30/18 21:27 CONCLUSION: No acute fracture. Left hip replacement. Soft tissue swelling upper lateral left thigh. Discharge Plan Discharge Disposition Patient Disposition: ACLF/ERIC Discharge Condition Condition: Stable Discharge Order Discharge Orders: Discharge Order (Routine); Ordered 07/31/18 Ordered By: Letty Akers ED Use Only Admit Order (Routine); Ordered 07/31/18 Ordered By: Humberto Coleman Discharge Details Anticipated Discharge Date: 07/31/18 Diagnosis: Syncope Physicians Team ED Provider: Humberto Coleman Primary Care Provider: Primary Care Diane Delvalle Attending Provider: Saleem Wolf Rxs /Orders / Referrals /Forms Prescriptions: Continue Unable to Obtain Home Meds RF: 0 Referrals: Primary Care Provider [Outside] - See Instructions Discharge Instructions Patient Printed Instructions: Fall Prevention for Older Adults (ED) Status ED Status: Left Department
== END 2018-07-31 15:44 ==
LOC: NEPC 20:38 → NEDA 20:38 → NEPHCDU 07-31 05:05
PROVIDERS: ADMIT Internal Medicine; ATTEND Internal Medicine
CPT/HCPCS: 70450; 72125; 73502; 80053; 81001; 84484; 85025; 85610; 85730; 87086; 96360; 96361; 97162; 99285; G0378; G8987; G8988; J7030